=== PATIENT | male | born 1965 | race Caucasian/White ===

== ENCOUNTER 2019-11-25 09:57 | Outpatient (CLI) | payer MEDICARE, SELFPAY ==
--- NOTE | 2019-11-25 10:40 | US_ITS ---
WS: [id number] ULTRASOUND ABDOMEN LIMITED CLINICAL INFORMATION: MULTIPLE SCLEROSIS COMPARISON: None. FINDINGS: Liver Size: Normal. Craniocaudal length: 12.9 cm. Echogenicity: Coarse echogenicity with fatty infiltration. Surface nodularity: None. Mass (size and location): None. Bile ducts Intrahepatic ducts: Normal. Common bile duct diameter: 3.9 mm. Gallbladder Normal. Gallstones: None. Gallbladder sludge: None. Gallbladder wall thickening: None. Pericholecystic fluid: None. Sonographic Frank sign: Absent. Pancreas Normal as visualized. Right kidney: Normal. Hydronephrosis: None. Size: 12.6 cm x 5.3 cm x 5.7 cm. Abdominal aorta and IVC Visualized portions are normal. Ascites: None. US/US abdomen limited [id number] IMPRESSION: 1. Diffuse fatty infiltration of the liver. 2. Gallbladder is normal. No cholelithiasis. 3. No hydronephrosis in right kidney. 4. Normal common bile duct.
== END 2019-11-25 09:58 | disposition home or self-care (01) ==
LOC: RAD 09:59
PROVIDERS: Visit Provider Specialist
DX: G35 Multiple sclerosis (principal); K76.0 Fatty (change of) liver, not elsewhere classified
CPT/HCPCS: 76705

== ENCOUNTER → 2019-11-26 13:49 | Outpatient (BNVA) | payer MEDICARE, SELFPAY | PROVIDERS: PCP Family Medicine; Visit Provider Specialist | DX: G35 Multiple sclerosis (principal); K75.81 Nonalcoholic steatohepatitis (NASH) | CPT/HCPCS: 99214 ==

== ENCOUNTER 2019-12-05 12:58 | Outpatient (CLI) | payer MEDICARE, SELFPAY ==
[2019-12-05 13:34] LABS: Basophils % 0.5 %; Eosinophils % 0.7 %; Hematocrit 43.2 % (42.0-52.0); Hemoglobin 14.5 g/dL (11.7-16.6); Lymphocytes # 0.5 10^3/uL (0.8-4.8); Lymphocytes % 11.3 %; Mean Corpuscular HGB Conc 33.6 g/dL (30.0-36.0); Mean Corpuscular Volume 89.3 fL (80-94); Mean Platelet Volume 10.9 fL (7.4-10.4); Monocytes # 0.6 10^3/uL (0.2-0.9); Monocytes % 13.8 %; Neutrophils % 73.5 %; Nucleated Red Blood Cells % 0 %; Platelet Count 201 10^3/cmm (130-400); Red Blood Count 4.84 10^6/uL (4.1-5.3); White Blood Count 4.1 10^3/uL (4.0-10.0)
== END 2019-12-05 12:59 | disposition home or self-care (01) ==
LOC: LAB 12:59
PROVIDERS: PCP Nurse Practitioner Family; Visit Provider Specialist
DX: D72.810 Lymphocytopenia (principal); K75.81 Nonalcoholic steatohepatitis (NASH)
CPT/HCPCS: 85025

== ENCOUNTER → 2019-12-30 16:36 | Outpatient (BNVA) | payer MEDICARE, SELFPAY | PROVIDERS: PCP Nurse Practitioner Family; Visit Provider Internal Medicine | DX: R74.8 Abnormal levels of other serum enzymes (principal); K75.81 Nonalcoholic steatohepatitis (NASH) | CPT/HCPCS: 80061; 82103; 82728; 83540; 83550; 86705; 86706; 86709; 86803; 87340 ==

== ENCOUNTER 2020-02-03 07:49 | Outpatient (CLI) | payer MEDICARE, SELFPAY ==
[2020-02-03] MEDS: diphenhydrAMINE 50 mg/mL SDV 1mL 25 MG IVP (09:25)
[2020-02-03] MEDS: acetaminophen 500 mg Tablet 1000 MG PO (09:26)
[2020-02-03 10:00] VITALS: PULSE 80; RESP 14; O2SAT 98
== END 2020-02-03 07:50 | disposition home or self-care (01) ==
LOC: NSACUTE 07:51
PROVIDERS: PCP Nurse Practitioner Family; Visit Provider Specialist
DX: G35 Multiple sclerosis (principal)
CPT/HCPCS: 36415; 96374; 96375; 96413; 96415; J1200; J2930

== ENCOUNTER 2020-02-18 07:55 | Outpatient (CLI) | payer MEDICARE, SELFPAY ==
[2020-02-18] MEDS: diphenhydrAMINE 50 mg/mL SDV 1mL 25 MG IVP (08:35)
--- NOTE | 2020-02-18 13:14 | PC.NURSE ---
0915 infusion started at 30 ml/hr. Patient tolerating with no s/s of reaction. Denies needs. 0945infusion increased to 60 ml/hr. Patient tolerating with no s/s of reaction. Denies needs. 1015 infusion increased to 90 ml/hr. Patient tolerating with no s/s of reaction. Denies needs. 1045infusion increased at 120 ml/hr. Patient tolerating with no s/s of reaction. Denies needs. 1115infusion increased at 150 ml/hr. Patient tolerating with no s/s of reaction. Denies needs. 1145 infusion increased at 180 ml/hr. Patient tolerating with no s/s of reaction. Denies needs. 1220 infusion complete. IV removed- see intervention. Patient given next appointment of August 31 and instructed on if he should experience a reaction to go to the nearest ED or call 911.
== END 2020-02-18 07:56 | disposition home or self-care (01) ==
LOC: NSACUTE 07:57
PROVIDERS: PCP Nurse Practitioner Family; Visit Provider Specialist
DX: G35 Multiple sclerosis (principal)
CPT/HCPCS: 96365; 96366; 96374; 96375

== ENCOUNTER → 2020-04-30 15:30 | Outpatient (BNVA) | payer MEDICARE, SELFPAY | PROVIDERS: PCP Nurse Practitioner Family; Visit Provider Internal Medicine | DX: K75.81 Nonalcoholic steatohepatitis (NASH) (principal) | CPT/HCPCS: 80053; 80061 ==

== ENCOUNTER → 2020-06-02 14:30 | Outpatient (BNVA) | payer MEDICARE, SELFPAY | PROVIDERS: PCP Nurse Practitioner Family; Visit Provider Specialist | DX: G35 Multiple sclerosis (principal) | CPT/HCPCS: 99203; 99204 ==

== ENCOUNTER 2020-06-08 11:49 | Outpatient (CLI) | payer MEDICARE, SELFPAY ==
[2020-06-08 12:21] LABS: Basophils % 0.6 %; Eosinophils # 0.1 10^3/uL (0.0-0.8); Eosinophils % 1.1 %; Hematocrit 45.3 % (42.0-52.0); Hemoglobin 14.8 g/dL (11.7-16.6); Lymphocytes # 0.5 10^3/uL (0.8-4.8); Lymphocytes % 11.3 %; Mean Corpuscular HGB Conc 32.7 g/dL (30.0-36.0); Mean Corpuscular Hemoglobin 29.1 pg (28.0-34.0); Mean Corpuscular Volume 89.2 fL (80-94); Mean Platelet Volume 10.7 fL (7.4-10.4); Monocytes # 0.6 10^3/uL (0.2-0.9); Monocytes % 12.2 %; Neutrophils # 3.55 10^3/uL (1.8-7.7); Neutrophils % 74.6 %; Nucleated Red Blood Cells % 0 %; Platelet Count 249 10^3/cmm (130-400); Red Blood Count 5.08 10^6/uL (4.1-5.3); Red Cell Distribution Width 13.2 % (12.1-15.1); White Blood Count 4.8 10^3/uL (4.0-10.0)
== END 2020-06-08 11:50 | disposition home or self-care (01) ==
LOC: LAB 11:53
PROVIDERS: PCP Nurse Practitioner Family; Visit Provider Specialist
DX: D72.810 Lymphocytopenia (principal)
CPT/HCPCS: 85025

== ENCOUNTER 2020-08-18 09:10 | Outpatient (CLI) | payer MEDICARE, SELFPAY ==
[2020-08-18] MEDS: acetaminophen 500 mg Tablet 1000 MG PO (09:55)
[2020-08-18] MEDS: diphenhydrAMINE 50 mg/mL SDV 1mL IVP (10:39)
== END 2020-08-18 09:11 | disposition home or self-care (01) ==
PROVIDERS: PCP Nurse Practitioner Family; Visit Provider Specialist
DX: G35 Multiple sclerosis (principal); K75.81 Nonalcoholic steatohepatitis (NASH); R74.8 Abnormal levels of other serum enzymes
CPT/HCPCS: 96375; 99213

== ENCOUNTER 2020-12-02 13:22 | Outpatient (CLI) | payer MEDICARE, SELFPAY ==
[2020-12-02 13:46] LABS: Basophils # 0.1 10^3/uL (0.0-0.1); Eosinophils # 0.1 10^3/uL (0.0-0.8); Eosinophils % 1.3 %; Hematocrit 44.2 % (42.0-52.0); Hemoglobin 14.8 g/dL (11.7-16.6); Lymphocytes # 0.7 10^3/uL (0.8-4.8); Lymphocytes % 12.4 %; Mean Corpuscular HGB Conc 33.5 g/dL (30.0-36.0); Mean Corpuscular Volume 89.7 fL (80-94); Mean Platelet Volume 10.4 fL (7.4-10.4); Monocytes # 0.7 10^3/uL (0.2-0.9); Neutrophils # 3.79 10^3/uL (1.8-7.7); Neutrophils % 72.1 %; Nucleated Red Blood Cells % 0 %; Platelet Count 278 10^3/cmm (130-400); Red Blood Count 4.93 10^6/uL (4.1-5.3); Red Cell Distribution Width 13.3 % (12.1-15.1); White Blood Count 5.3 10^3/uL (4.0-10.0)
== END 2020-12-02 13:23 | disposition home or self-care (01) ==
PROVIDERS: PCP Nurse Practitioner Family; Visit Provider Specialist
DX: D72.810 Lymphocytopenia (principal); K75.81 Nonalcoholic steatohepatitis (NASH)
CPT/HCPCS: 36415; 85025

== ENCOUNTER 2021-02-15 08:27 | Outpatient (CLI) | payer MEDICARE, SELFPAY ==
[2021-02-15] MEDS: acetaminophen 500 mg Tablet 1000 MG PO (09:00)
[2021-02-15] MEDS: diphenhydrAMINE 50 mg/mL SDV 1mL 12.5 MG IVP ×2 (09:10→11:05)
--- NOTE | 2021-02-15 10:07 | PC.NURSE ---
Medication Lot # [id number] 08/20/21 Benadryl [id number] 02/18/22 Solu-Medrol [id number] 08/20/22
--- NOTE | 2021-02-15 11:06 | PC.NURSE ---
Patient notified me he had a red rash on his head and felt itchy. I notified the provider. She ordered another 12.5mg of Benadryl. I prepared that and she administered the drug. Patient is continuing to be monitored.
== END 2021-02-15 08:28 | disposition home or self-care (01) ==
LOC: NSACUTE 08:32
PROVIDERS: PCP Nurse Practitioner Family; Visit Provider Specialist
DX: G35 Multiple sclerosis (principal)
CPT/HCPCS: 96365; 96366; 96375; 99213; J1200; J2350; J2930; J7040

== ENCOUNTER → 2021-04-28 11:00 | Outpatient (BNVA) | payer MEDICARE, SELFPAY | PROVIDERS: PCP Nurse Practitioner Family; Visit Provider Internal Medicine | DX: K75.81 Nonalcoholic steatohepatitis (NASH) (principal) | CPT/HCPCS: 80061; 80076 ==

== ENCOUNTER 2021-06-01 09:59 | Outpatient (CLI) | payer MEDICARE, SELFPAY ==
[2021-06-01 10:21] LABS: Basophils # 0.1 10^3/uL (0.0-0.1); Basophils % 0.8 %; Eosinophils # 0.1 10^3/uL (0.0-0.8); Eosinophils % 0.9 %; Hematocrit 47.5 % (42.0-52.0); Hemoglobin 15.7 g/dL (11.7-16.6); Lymphocytes # 0.7 10^3/uL (0.8-4.8); Lymphocytes % 11.1 %; Mean Corpuscular HGB Conc 33.1 g/dL (30.0-36.0); Mean Corpuscular Hemoglobin 30.1 pg (28.0-34.0); Mean Corpuscular Volume 91.2 fL (80-94); Mean Platelet Volume 10.1 fL (7.4-10.4); Monocytes # 0.6 10^3/uL (0.2-0.9); Monocytes % 9.6 %; Neutrophils # 5.07 10^3/uL (1.8-7.7); Neutrophils % 77.3 %; Nucleated Red Blood Cells % 0 %; Platelet Count 287 10^3/cmm (130-400); Red Blood Count 5.21 10^6/uL (4.1-5.3); Red Cell Distribution Width 13.7 % (12.1-15.1); White Blood Count 6.6 10^3/uL (4.0-10.0)
== END 2021-06-01 10:00 | disposition home or self-care (01) ==
LOC: LAB 10:04
PROVIDERS: PCP Nurse Practitioner Family; Visit Provider Specialist
DX: D72.810 Lymphocytopenia (principal)
CPT/HCPCS: 36415; 85025

== ENCOUNTER → 2021-06-07 08:23 | Outpatient (BNVA) | payer MEDICARE, SELFPAY | PROVIDERS: PCP Nurse Practitioner Family; Referring Provider Nurse Practitioner Family; Visit Provider Orthopaedic Surgery | DX: M25.512 Pain in left shoulder (principal) | CPT/HCPCS: 73030 ==

== ENCOUNTER 2021-08-11 08:54 | Outpatient (CLI) | payer MEDICARE, SELFPAY ==
[2021-08-11 09:03] VITALS: BP 150/92; PULSE 70; RESP 18; TEMP 36.4; O2SAT 98
[2021-08-11] MEDS: sodium chloride 0.9% 250 ML 75 ML IV (10:01)
[2021-08-11] MEDS: acetaminophen 500 mg Tablet 1000 MG PO (10:02)
[2021-08-11] MEDS: diphenhydrAMINE 50 mg/mL SDV 1mL 25 MG IV (10:03)
[2021-08-11 10:36] VITALS: BP 156/96; PULSE 64; RESP 18; TEMP 36.7; O2SAT 99
[2021-08-11] MEDS: diphenhydrAMINE 50 mg/mL SDV 1mL IVP (11:01)
[2021-08-11 11:05] VITALS: BP 161/91; PULSE 63; RESP 18; TEMP 36.6; O2SAT 98
[2021-08-11 11:51] VITALS: BP 143/89; PULSE 59; RESP 18; TEMP 36.6; O2SAT 97
--- NOTE | 2021-08-11 12:37 | PC.NURSE ---
Pt c/o throat tightness during infusion. Infusion was stopped, and Benadryl IV push was given. Pt was asymptomatic, and infusion was resumed after 20 minutes per order protocol.
[2021-08-11 13:35] VITALS: BP 134/89; PULSE 61; RESP 18; TEMP 36.4; O2SAT 98
== END 2021-08-11 08:55 | disposition home or self-care (01) ==
LOC: ONCMED 08:59
PROVIDERS: PCP Nurse Practitioner Family; Referring Provider Specialist; Visit Provider Specialist
DX: G35 Multiple sclerosis (principal)
CPT/HCPCS: 96365; 96366; 96375; 96376; J1200; J2350; J2930; J7040; J7050

== ENCOUNTER 2022-02-09 09:02 | Outpatient (CLI) | payer MEDICARE, SELFPAY ==
[2022-02-09 09:31] VITALS: BP 150/94; PULSE 67; RESP 18; TEMP 36.4; O2SAT 97
[2022-02-09 09:53] LABS: Basophils # 0.1 10^3/uL (0.0-0.1); Basophils % 0.9 %; Eosinophils # 0.1 10^3/uL (0.0-0.8); Hematocrit 48.1 % (42.0-52.0); Hemoglobin 16.8 g/dL (11.7-16.6); Lymphocytes # 0.7 10^3/uL (0.8-4.8); Lymphocytes % 12.6 %; Mean Corpuscular HGB Conc 34.9 g/dL (30.0-36.0); Mean Corpuscular Hemoglobin 31.1 pg (28.0-34.0); Mean Corpuscular Volume 88.9 fl (80-94); Mean Platelet Volume 10.6 fL (7.4-10.4); Monocytes # 0.7 10^3/uL (0.2-0.9); Monocytes % 12.2 %; Neutrophils # 4.24 10^3/uL (1.8-7.7); Nucleated Red Blood Cells % 0 %; Platelet Count 238 10^3/cmm (130-400); Red Blood Count 5.41 10^6/uL (4.1-5.3); Red Cell Distribution Width 13.7 % (12.1-15.1); White Blood Count 5.8 10^3/uL (4.0-10.0)
[2022-02-09] MEDS: acetaminophen 500 mg Tablet 1000 MG PO (09:55)
[2022-02-09] MEDS: sodium chloride 0.9% 250 ML 75 ML IV (09:57)
[2022-02-09] MEDS: diphenhydrAMINE 50 mg/mL SDV 1mL 25 MG IV ×2 (09:58→10:53)
[2022-02-09 10:13] LABS: Alanine Aminotransferase 54 U/L (0-41); Albumin Level 4.5 g/dL (3.5-5.2); Alkaline Phosphatase 80 IU/L (40-130); Anion Gap 14.9 (5-19); Aspartate Amino Transferase 26 U/L (0-40); Blood Urea Nitrogen 8 mg/dL (6-20); Calcium 10.1 mg/dL (8.5-10.5); Carbon Dioxide 24 mmol/L (22-29); Chloride 103 mmol/L (98-107); Globulin 2.8 g/dL (1.3-4.6); Glomerular Filtration Rate 139.9 mL/min (90-130); Glucose 110 mg/dL (65-115); Osmolality Calculated 285 mOsm/kg (285-295); Potassium 3.9 mmol/L (3.5-5.1); Sodium 138 mmol/L (136-145); Total Protein 7.3 g/dL (6.6-8.7)
[2022-02-09 10:24] VITALS: BP 142/84; PULSE 58; RESP 16; TEMP 36.6; O2SAT 96
[2022-02-09 10:39] VITALS: BP 143/77; PULSE 71; RESP 18; TEMP 36.6; O2SAT 97
[2022-02-09 11:08] VITALS: BP 138/82; PULSE 61; RESP 16; TEMP 36.6; O2SAT 94
[2022-02-09 11:49] VITALS: BP 136/81; PULSE 62; RESP 18; TEMP 36.6; O2SAT 95
[2022-02-09 13:26] VITALS: BP 146/96; PULSE 73; RESP 18; TEMP 36.3; O2SAT 96
== END 2022-02-09 09:03 | disposition home or self-care (01) ==
LOC: ONCMED 09:05
PROVIDERS: PCP Nurse Practitioner Family; Referring Provider Specialist; Visit Provider Specialist
DX: G35 Multiple sclerosis (principal); K76.0 Fatty (change of) liver, not elsewhere classified
CPT/HCPCS: 80053; 85025; 96365; 96366; 96375; 96376; 99214; 99999; J1200; J2350; J2930; J7040; J7050

== ENCOUNTER 2022-05-26 10:11 | Outpatient (CLI) | payer MEDICARE, SELFPAY ==
[2022-05-26 10:41] LABS: Basophils # 0.1 10^3/uL (0.0-0.1); Basophils % 1.1 %; Eosinophils # 0.1 10^3/uL (0.0-0.8); Eosinophils % 2.4 %; Hematocrit 45.6 % (42.0-52.0); Hemoglobin 15.8 g/dL (11.7-16.6); Lymphocytes # 0.7 10^3/uL (0.8-4.8); Lymphocytes % 12.5 %; Mean Corpuscular HGB Conc 34.6 g/dL (30.0-36.0); Mean Corpuscular Hemoglobin 30.7 pg (28.0-34.0); Mean Corpuscular Volume 88.7 fl (80-94); Mean Platelet Volume 10.4 fL (7.4-10.4); Monocytes # 0.9 10^3/uL (0.2-0.9); Monocytes % 16.9 %; Neutrophils # 3.58 10^3/uL (1.8-7.7); Neutrophils % 66.7 %; Nucleated Red Blood Cells % 0 %; Platelet Count 271 10^3/cmm (130-400); Red Blood Count 5.14 10^6/uL (4.1-5.3); Red Cell Distribution Width 13.8 % (12.1-15.1); White Blood Count 5.4 10^3/uL (4.0-10.0)
== END 2022-05-26 10:12 | disposition home or self-care (01) ==
LOC: LAB 10:14
PROVIDERS: PCP Nurse Practitioner Family; Visit Provider Specialist
DX: D72.810 Lymphocytopenia (principal)
CPT/HCPCS: 36415; 85025

== ENCOUNTER 2022-08-10 10:14 | Outpatient (CLI) | payer MEDICARE, SELFPAY ==
[2022-08-10 11:07] VITALS: BP 152/71; PULSE 68; RESP 18; TEMP 36.3; O2SAT 99
[2022-08-10] MEDS: sodium chloride 0.9% 250 ML 50 ML IV (11:49)
[2022-08-10] MEDS: acetaminophen 500 mg Tablet 1000 MG PO (11:49)
[2022-08-10] MEDS: diphenhydrAMINE 50 mg/mL SDV 1mL 25 MG IVP ×2 (11:51→12:39)
[2022-08-10 12:28] VITALS: BP 118/72; PULSE 59; RESP 18; TEMP 36.6; O2SAT 97
[2022-08-10 13:35] VITALS: BP 124/78; PULSE 62; RESP 18; TEMP 36.5; O2SAT 96
[2022-08-10 14:46] VITALS: BP 137/83; PULSE 63; RESP 18; TEMP 36.3; O2SAT 98
== END 2022-08-10 10:15 | disposition home or self-care (01) ==
PROVIDERS: PCP Nurse Practitioner Family; Visit Provider Specialist
DX: K76.0 Fatty (change of) liver, not elsewhere classified (principal); Z72.3 Lack of physical exercise; G35 Multiple sclerosis
CPT/HCPCS: 96365; 96366; 96375; 96376; 99213; J1200; J2350; J2930; J7040; J7050

== ENCOUNTER 2022-11-23 13:05 | Outpatient (CLI) | payer MEDICARE, SELFPAY ==
[2022-11-23 14:01] LABS: Basophils # 0.1 10^3/uL (0.0-0.1); Basophils % 1.1 %; Eosinophils # 0.1 10^3/uL (0.0-0.8); Eosinophils % 1.1 %; Hematocrit 44.8 % (42.0-52.0); Hemoglobin 15.1 g/dL (11.7-16.6); Lymphocytes # 0.8 10^3/uL (0.8-4.8); Lymphocytes % 15.3 %; Mean Corpuscular HGB Conc 33.7 g/dL (30.0-36.0); Mean Corpuscular Hemoglobin 30.5 pg (28.0-34.0); Mean Corpuscular Volume 90.5 fl (80-94); Mean Platelet Volume 10.8 fL (7.4-10.4); Monocytes # 0.8 10^3/uL (0.2-0.9); Monocytes % 14.8 %; Neutrophils % 67.3 %; Nucleated Red Blood Cells % 0 %; Platelet Count 253 10^3/cmm (130-400); Red Blood Count 4.95 10^6/uL (4.1-5.3); Red Cell Distribution Width 13.2 % (12.1-15.1); White Blood Count 5.5 10^3/uL (4.0-10.0)
[2022-11-23 14:31] LABS: Alanine Aminotransferase 56 U/L (0-41)
== END 2022-11-23 13:06 | disposition home or self-care (01) ==
LOC: LAB 13:10
PROVIDERS: PCP Nurse Practitioner Family; Visit Provider Specialist
DX: D72.810 Lymphocytopenia (principal); K75.81 Nonalcoholic steatohepatitis (NASH)
CPT/HCPCS: 36415; 84460; 85025

== ENCOUNTER → 2023-02-06 10:34 | Outpatient (BNVA) | payer MEDICARE, SELFPAY | PROVIDERS: PCP Nurse Practitioner Family; Visit Provider Specialist | DX: G35 Multiple sclerosis (principal); K76.0 Fatty (change of) liver, not elsewhere classified | CPT/HCPCS: 99213 ==

== ENCOUNTER 2023-02-08 10:03 | Oncology outpatient (recurring) (ONCR) | payer MEDICARE, SELFPAY ==
[2023-02-08 09:45] VITALS: BP 148/83; PULSE 54; TEMP 36.1; O2SAT 96
[2023-02-08] MEDS: sodium chloride 0.9% 250 ML 100 ML IV (10:06)
[2023-02-08] MEDS: acetaminophen 500 mg Tablet 1000 MG PO (10:08)
[2023-02-08] MEDS: diphenhydrAMINE 50 mg/mL SDV 1mL 25 MG IVP ×2 (10:09→11:47)
[2023-02-08] MEDS: ocrelizumab 600 MG in sodium chloride 0.9% 500 ML 100 MG IV (10:37)
[2023-02-08 10:55] VITALS: BP 123/78; PULSE 57; TEMP 36.5; O2SAT 96
[2023-02-08 11:10] VITALS: BP 124/82; PULSE 54; TEMP 36.6; O2SAT 54
[2023-02-08 11:40] VITALS: BP 132/85; PULSE 64; TEMP 36.6; O2SAT 96
[2023-02-08 12:05] VITALS: BP 133/82; PULSE 62
[2023-02-08 13:24] VITALS: BP 146/81; PULSE 62
== END 2023-02-17 23:59 | disposition home or self-care (01) ==
PROVIDERS: PCP Nurse Practitioner Family; Visit Provider Specialist
DX: G35 Multiple sclerosis (principal); Z79.899 Other long term (current) drug therapy
CPT/HCPCS: 96365; 96366; 96375; J1200; J2350; J2930; J7040; J7050

== ENCOUNTER 2023-07-03 10:33 | Outpatient (CLI) | payer MEDICARE, SELFPAY ==
[2023-07-03 11:31] LABS: Basophils # 0.1 10^3/uL (0.0-0.1); Basophils % 0.8 %; Eosinophils # 0.1 10^3/uL (0.0-0.8); Eosinophils % 1.4 %; Hematocrit 43.8 % (42.0-52.0); Hemoglobin 14.9 g/dL (11.7-16.6); Lymphocytes # 1.3 10^3/uL (0.8-4.8); Lymphocytes % 20.3 %; Mean Corpuscular Hemoglobin 30.2 pg (28.0-34.0); Mean Corpuscular Volume 88.8 fl (80-94); Monocytes % 15.7 %; Neutrophils # 3.84 10^3/uL (1.8-7.7); Neutrophils % 61.5 %; Nucleated Red Blood Cells % 0 %; Platelet Count 261 10^3/cmm (130-400); Red Blood Count 4.93 10^6/uL (4.1-5.3); Red Cell Distribution Width 13.6 % (12.1-15.1); White Blood Count 6.3 10^3/uL (4.0-10.0)
== END 2023-07-03 10:34 | disposition home or self-care (01) ==
PROVIDERS: PCP Family Medicine; Visit Provider Specialist
DX: D72.810 Lymphocytopenia (principal)
CPT/HCPCS: 36415; 85025

== ENCOUNTER 2023-08-08 08:39 | Oncology outpatient (recurring) (ONCR) | payer MEDICARE, SELFPAY ==
[2023-08-08] VITALS (7 sets, daily range): BP systolic 128–172; BP diastolic 76–94; PULSE 58–84; RESP 16–17; TEMP 36.1–36.5; O2SAT 95–96
[2023-08-08] MEDS: sodium chloride 0.9% 250 ML 75 ML IV (11:21)
[2023-08-08] MEDS: diphenhydrAMINE 50 mg/mL SDV 1mL IVP (11:23)
[2023-08-08] MEDS: methylPREDNISolone sod succ 125 mg SDV 100 MG IV (11:25)
[2023-08-08] MEDS: acetaminophen 500 mg Tablet 1000 MG PO (11:35)
[2023-08-08] MEDS: ocrelizumab 600 MG in sodium chloride 0.9% 500 ML 40 MG IV (12:15)
== END 2023-08-19 23:59 | disposition home or self-care (01) ==
PROVIDERS: PCP Family Medicine; Visit Provider Specialist
DX: G35 Multiple sclerosis (principal); Z53.9 Procedure and treatment not carried out, unspecified reason
CPT/HCPCS: 96375; 96413; 96415; J1200; J2350; J2930; J7040; J7050

== ENCOUNTER → 2023-08-16 12:49 | Outpatient (BNVA) | payer MEDICARE, SELFPAY | PROVIDERS: PCP Family Medicine; Visit Provider Specialist | DX: G35 Multiple sclerosis (principal) | CPT/HCPCS: 99213 ==

== ENCOUNTER → 2023-08-29 10:07 | Outpatient (BNVA) | payer MEDICARE, SELFPAY | PROVIDERS: PCP Family Medicine; Visit Provider Family Medicine | DX: C61 Malignant neoplasm of prostate (principal); M19.90 Unspecified osteoarthritis, unspecified site; K75.81 Nonalcoholic steatohepatitis (NASH) | CPT/HCPCS: 80053; 80061; 84153; 99213 ==

== ENCOUNTER 2023-11-17 13:09 | Outpatient (CLI) | payer MEDICARE, SELFPAY ==
[2023-11-17 13:37] LABS: Basophils % 0.5 %; Eosinophils # 0.1 10^3/uL (0.0-0.8); Eosinophils % 1.5 %; Hematocrit 39.2 % (37-53); Lymphocytes # 0.9 10^3/uL (0.8-4.8); Lymphocytes % 10.9 %; Mean Corpuscular HGB Conc 34.7 g/dL (30-55); Mean Corpuscular Hemoglobin 30.6 pg (27-33); Mean Corpuscular Volume 88.3 fl (82-101); Mean Platelet Volume 9.8 fL (7.4-10.4); Monocytes % 12.6 %; Neutrophils # 5.89 10^3/uL (1.8-7.7); Neutrophils % 74.1 %; Nucleated Red Blood Cells % 0 %; Platelet Count 328 10^3/cmm (157-399); Red Blood Count 4.44 10^6/uL (3.85-5.65); Red Cell Distribution Width 12.9 % (12.1-15.1); White Blood Count 7.95 10^3/uL (3.29-11.43)
== END 2023-11-17 13:10 | disposition home or self-care (01) ==
LOC: LAB 13:13
PROVIDERS: PCP Family Medicine; Visit Provider Specialist
DX: D72.810 Lymphocytopenia (principal)
CPT/HCPCS: 36415; 85025

== ENCOUNTER 2024-02-05 08:17 | Oncology outpatient (recurring) (ONCR) | payer MEDICARE, SELFPAY ==
[2024-02-05] MEDS: diphenhydrAMINE 50 mg/mL SDV 1mL 25 MG IVP (08:54)
[2024-02-05] MEDS: sodium chloride 0.9% 250 ML 75 ML IV (08:54)
[2024-02-05] MEDS: acetaminophen 500 mg Tablet 1000 MG PO (08:54)
[2024-02-05] MEDS: methylPREDNISolone sod succ 125 mg/2 mL INJ IVP (08:55)
[2024-02-05 09:30] VITALS: BP 137/71; PULSE 63; RESP 16; TEMP 36.6; O2SAT 96
[2024-02-05] MEDS: ocrelizumab 600 MG in sodium chloride 0.9% 500 ML 100 MG IV (09:30)
[2024-02-05 09:45] VITALS: BP 152/75; PULSE 62; RESP 16; TEMP 36.6; O2SAT 95
[2024-02-05 10:05] VITALS: BP 121/69; PULSE 64; RESP 16; TEMP 36.4; O2SAT 95
[2024-02-05 10:35] VITALS: BP 127/78; PULSE 61; RESP 16; TEMP 36.3; O2SAT 98
== END 2024-02-18 23:59 | disposition home or self-care (01) ==
PROVIDERS: PCP Family Medicine; Visit Provider Specialist
DX: G35 Multiple sclerosis (principal)
CPT/HCPCS: 96375; 96413; 96415; A4222; J1200; J2350; J2930; J7040; J7050

== ENCOUNTER → 2024-02-14 12:58 | Outpatient (BNVA) | payer MEDICARE, SELFPAY | PROVIDERS: PCP Family Medicine; Visit Provider Specialist | DX: G35 Multiple sclerosis (principal) | CPT/HCPCS: 99213 ==

== ENCOUNTER → 2024-03-04 11:21 | Outpatient (BNVA) | payer MEDICARE, SELFPAY | PROVIDERS: PCP Family Medicine; Visit Provider Family Medicine | DX: M19.042 Primary osteoarthritis, left hand (principal) | CPT/HCPCS: 73130 ==

== ENCOUNTER 2024-08-05 14:36 | Oncology outpatient (recurring) (ONCR) | payer MEDICARE, SELFPAY ==
[2024-08-05 10:58] VITALS: BP 144/80; PULSE 68; TEMP 36.7; O2SAT 97
[2024-08-05] MEDS: diphenhydrAMINE 50 mg/mL SDV 1mL 25 MG IVP (11:20)
[2024-08-05] MEDS: acetaminophen 500 mg Tablet 1000 MG PO (11:20)
[2024-08-05] MEDS: sodium chloride 0.9% 250 ML 75 ML IV (11:20)
[2024-08-05] MEDS: methylPREDNISolone sod succ 125 mg/2 mL INJ IVP (11:21)
[2024-08-05] MEDS: ocrelizumab 600 MG in sodium chloride 0.9% 500 ML 100 MG IV (12:02)
[2024-08-05 12:05] VITALS: BP 135/71; PULSE 66; RESP 16; TEMP 36.8; O2SAT 97
[2024-08-05 12:20] VITALS: BP 128/74; PULSE 73; RESP 16; TEMP 36.3; O2SAT 96
[2024-08-05 12:35] VITALS: BP 132/76; PULSE 64; RESP 16; TEMP 36.3; O2SAT 96
[2024-08-05 13:10] VITALS: BP 129/66; PULSE 89; RESP 16; TEMP 36.8; O2SAT 97
[2024-08-05 14:34] VITALS: BP 142/86; PULSE 87; RESP 16; TEMP 36.4; O2SAT 97
== END 2024-08-19 23:59 | disposition home or self-care (01) ==
LOC: ONCMED 14:36
PROVIDERS: PCP Family Medicine; Visit Provider Specialist
DX: G35 Multiple sclerosis (principal); Z79.899 Other long term (current) drug therapy
CPT/HCPCS: 96375; 96413; 96415; A4222; J1200; J2350; J2919; J7040; J7050

== ENCOUNTER → 2024-09-09 13:58 | Outpatient (BNVA) | payer MEDICARE, SELFPAY | PROVIDERS: PCP Family Medicine; Visit Provider Nurse Practitioner Family | DX: L82.1 Other seborrheic keratosis (principal); L81.4 Other melanin hyperpigmentation; D23.71 Other benign neoplasm of skin of right lower limb, including hip | CPT/HCPCS: 99213 ==

== ENCOUNTER → 2025-01-15 12:10 | Outpatient (BNVA) | payer MEDICARE, SELFPAY | PROVIDERS: PCP Family Medicine; Visit Provider Family Medicine | DX: I10 Essential (primary) hypertension (principal); M19.90 Unspecified osteoarthritis, unspecified site; G35 Multiple sclerosis; B02.29 Other postherpetic nervous system involvement; L98.9 Disorder of the skin and subcutaneous tissue, unspecified; M72.2 Plantar fascial fibromatosis | CPT/HCPCS: 80053; 80061; 85025 ==

== ENCOUNTER → 2025-02-05 13:07 | Outpatient (BNVA) | payer MEDICARE, SELFPAY | PROVIDERS: PCP Family Medicine; Visit Provider Specialist | DX: G35 Multiple sclerosis (principal) | CPT/HCPCS: 99213 ==

== ENCOUNTER 2025-02-06 08:56 | Oncology outpatient (recurring) (ONCR) | payer MEDICARE, SELFPAY ==
[2025-02-06] MEDS: sodium chloride 0.9% 250 ML 75 ML IV (10:00)
[2025-02-06] MEDS: acetaminophen 500 mg Tablet 1000 MG PO (10:01)
[2025-02-06] MEDS: diphenhydrAMINE 50 mg/mL SDV 1mL 25 MG IVP (10:01)
[2025-02-06] MEDS: methylPREDNISolone sod succ 125 mg/2 mL INJ IVP (10:08)
[2025-02-06] MEDS: ocrelizumab 600 MG in sodium chloride 0.9% 500 ML 100 MG IV (10:42)
[2025-02-06 12:58] VITALS: BP 132/78; PULSE 57; RESP 18; TEMP 36.4; O2SAT 93
[2025-02-06 13:00] VITALS: BP 128/73; PULSE 57; RESP 17; TEMP 36.6; O2SAT 94
== END 2025-02-17 23:59 | disposition home or self-care (01) ==
PROVIDERS: PCP Family Medicine; Visit Provider Specialist
DX: G35 Multiple sclerosis (principal); Z79.899 Other long term (current) drug therapy
CPT/HCPCS: 96375; 96413; 96415; A4222; J1200; J2350; J2919; J7040; J7050; J9999

== ENCOUNTER 2025-02-13 09:58 | Outpatient (CLI) | payer MEDICARE, SELFPAY ==
--- NOTE | 2025-02-13 10:15 | MR_ITS ---
WS: [id number] MRI BRAIN WITH AND WITHOUT CONTRAST HISTORY: G35 - Multiple sclerosis COMPARISON: 07/04/2016 TECHNIQUE: Multiplanar imaging performed through the brain with MultiHance 17 ml's IV. Diffusion imaging is normal. Extensive bilateral T2 and FLAIR signal hyperintensities throughout the white matter. Pericallosal, callosal septal, periventricular and subcortical white matter lesions are very similar in size and distribution as compared to 2016. None of the demyelinating lesions enhance. No black holes. No signal abnormalities in the laura or posterior fossa. No susceptibility artifacts or prior lacunar infarcts. Ventricles and extra-axial spaces are normal. Clivus and pituitary gland are normal. Visualized posterior fossa and brainstem are also normal. Postcontrast images are negative for masses or vascular malformations. Dural venous sinuses are normal. Paranasal sinuses: Mucous retention cyst in the RIGHT maxillary sinus. The remaining sinuses are clear. Mastoid air cells: Normal. Calvarium and scalp: Normal. MR/MR head wo/w con [id number] IMPRESSION: 1. Extensive demyelinating lesions identified in the supratentorial brain cons istent with history of MS. No obvious progression of demyelination or enhancing lesions. 2. No acute infarct. 3. No enhancing masses.
[2025-02-13] MEDS: gadobenate dimeglumine 20 mL vial IV (10:58)
== END 2025-02-13 09:59 | disposition home or self-care (01) ==
LOC: RAD 10:00
PROVIDERS: PCP Family Medicine; Visit Provider Specialist
DX: G35 Multiple sclerosis (principal); G93.89 Other specified disorders of brain; R93.0 Abnormal findings on diagnostic imaging of skull and head, not elsewhere classified; M27.40 Unspecified cyst of jaw
CPT/HCPCS: 70553

== ENCOUNTER → 2025-08-06 10:41 | Outpatient (BNVA) | payer MEDICARE, SELFPAY | PROVIDERS: PCP Family Medicine; Visit Provider Family Medicine | DX: Z11.3 Encounter for screening for infections with a predominantly sexual mode of transmission (principal); Z13.6 Encounter for screening for cardiovascular disorders; Z72.51 High risk heterosexual behavior; Z11.4 Encounter for screening for human immunodeficiency virus [HIV]; Z11.59 Encounter for screening for other viral diseases | CPT/HCPCS: 80053; 80061; 81000; 86705; 86706; 86709; 86803; 87340; 87491; 87591; 87806 ==

== ENCOUNTER 2025-08-14 08:46 | Oncology outpatient (recurring) (ONCR) | payer MEDICARE, SELFPAY ==
[2025-08-14 09:05] VITALS: BP 144/80; PULSE 69; RESP 16; TEMP 36.6; O2SAT 99
[2025-08-14] MEDS: diphenhydrAMINE 50 mg/mL SDV 1mL 25 MG IVP (09:16)
[2025-08-14] MEDS: methylPREDNISolone sod succ 125 mg/2 mL INJ IVP (09:22)
== END 2025-08-19 23:59 | disposition home or self-care (01) ==
PROVIDERS: PCP Family Medicine; Visit Provider Specialist
DX: G35 Multiple sclerosis (principal); Z79.899 Other long term (current) drug therapy
CPT/HCPCS: 96375; 96413; 96415; A4222; J1200; J2350; J2919; J7040; J7050; J9999

== ENCOUNTER → 2025-09-09 14:16 | Outpatient (BNVA) | payer MEDICARE, SELFPAY | PROVIDERS: PCP Family Medicine; Visit Provider Nurse Practitioner Family | DX: L70.8 Other acne (principal); D18.01 Hemangioma of skin and subcutaneous tissue; L81.4 Other melanin hyperpigmentation; L91.8 Other hypertrophic disorders of the skin; L53.8 Other specified erythematous conditions; R20.8 Other disturbances of skin sensation; D48.5 Neoplasm of uncertain behavior of skin | CPT/HCPCS: 11102; 17110; 99213 ==